=== PATIENT | male | born 1960 | race Caucasian/White ===

== ENCOUNTER 2017-06-16 15:27 | Emergency (ER) | payer BC ==
[2017-06-16 15:52] LABS: #Eosinphils 0.1 thou/uL (0.0-0.7); #Lymphocytes 2.7 thou/uL (1.20-3.40); #Monocytes 0.3 thou/uL (0.11-0.59); #Neutrophils 2.8 thou/uL (1.40-6.50); %Basophils 0.1 % (0.0-1.0); %Lymphocytes 45.4 % (21.0-51.0); %Monocytes 5.5 % (0.0-10.0); Hemoglobin 18.1 g/dL (14.0-18.0); Mean Corpuscular HGB CONC 33.4 g/dL (32.0-36.0); Mean Corpuscular Volume 92.6 fl (80.0-94.0); Mean Platelet Volume 6.9 fL (7.4-10.4); Platelet Count 237 thou/uL (130-400); RBC Distribution Width 11.8 % (11.5-14.5); Red Blood Cell (RBC) Count 5.86 mill/uL (4.70-6.10); White Blood Cell (WBC) Count 5.9 thou/uL (4.8-10.8)
[2017-06-16 16:16] LABS: CKMB 2.8 ng/mL (0-6.6); Troponin I Less than 0.010 ng/mL (< 0.028)
[2017-06-16 16:20] LABS: ALT (SGPT) 51 U/L (8-55); AST (SGOT) 25 U/L (5-34); Albumin 4.5 g/dL (3.5-5.0); Alkaline Phosphatase 79 U/L (40-150); Anion Gap 14 mmol/L (10-20); BUN (Urea Nitrogen) 12 mg/dL (8.4-25.7); Bilirubin, Total 0.6 mg/dL (0.2-1.2); CK (CPK) 197 U/L (30-200); Calc. Creatinine Clearance 0 mL/min (70-130); Calcium 10.1 mg/dL (7.8-10.44); Carbon Dioxide 23 mmol/L (22-29); Chloride 104 mmol/L (98-107); Estimated GFR-MDRD 83; Glucose 103 mg/dL (70-105); Magnesium 2.1 mg/dL (1.6-2.6); Potassium 3.9 mmol/L (3.5-5.1); Protein, Total 7.5 g/dL (6.0-8.3); Sodium 137 mmol/L (136-145)
== END 2017-06-16 16:54 | disposition home or self-care (01) ==
LOC: ERS 15:27
DX: E86.0 Dehydration (principal); E78.5 Hyperlipidemia, unspecified; I10 Essential (primary) hypertension; Z79.899 Other long term (current) drug therapy
CPT/HCPCS: 36416; 80053; 82553; 83735; 84484; 85025; 93005

== ENCOUNTER 2017-08-15 08:13 | Outpatient (CLI) | payer BC ==
--- NOTE | 2017-08-15 10:56 | CT ---
CT ABDOMEN WITH AND WITHOUT IV CONTRAST CT PELVIS WITH AND WITHOUT IV CONTRAST: DATE: 08/15/17. HISTORY: Microscopic hematuria. Enlarged prostate gland. COMPARISON: None available. FINDINGS: There are 2 approximately 4mm pulmonary nodules in the right lung base which are too small to further characterize. Mild degenerative changes are seen in the spine. There is a hemangioma seen in the L1 vertebral body with postsurgical changes of the lumbar spine with evidence of laminectomy defect at the L3-4 and L4 -5 levels. There are subcentimeter too small to characterize hypodense lesions in each kidney more numerous on t he right. No enhancing renal lesion is appreciated on this exam. No renal or ureteral calculi are s een bilaterally, and there is no evidence of hydronephrosis. The liver, spleen, pancreas, bilateral adrenal glands, and partially distended urinary bladder demons trate a normal CT appearance. Prostate calcifications are visualized. A few scattered colonic diverticula are seen. The appendix is visualized and normal in caliber. Vascular calcifications are seen in the abdominal aorta and iliac arteries. There is mild stranding seen within the central mesentery which is a nonspecific finding. NO enlarge d lymph nodes are visualized. Findings could be related to mesenteric panniculitis. There is a tiny fat-containing umbilical hernia. IMPRESSION: 1. Two approximately 4 mm pulmonary nodules at the right lung base which are too small to further ch aracterize. 2. No renal or ureteral calculi are seen bilaterally, and there is no hydronephrosis. 3. Subcentimeter too small to characterize hypodense lesions in each kidney, more numerous on the ri ght. 4. Colonic diverticulosis. 5. Tiny fat-containing umbilical hernia. POS: [facility]
[2017-08-15] MEDS ORDERED: Iopamidol 370 76% 100 ML VIAL ONE (16:43)
== END 2017-08-15 08:14 | disposition home or self-care (01) ==
LOC: CT 08:13
PROVIDERS: ATTEND Urology
DX: R31.29 Other microscopic hematuria (principal); R91.8 Other nonspecific abnormal finding of lung field; K57.30 Diverticulosis of large intestine without perforation or abscess without bleeding; N28.89 Other specified disorders of kidney and ureter
CPT/HCPCS: 74178